=== PATIENT | female | born 1955 | race American Indian/Alaskan Native ===

== ENCOUNTER 2018-12-17 20:41 | Emergency (ER) | payer SELFPAY ==
--- NOTE | 2018-12-17 21:13 | Event Note ---
ED Screening Note ED Screening Note: RX BP PILLS METFORMIN JULIEN ASA PMH HTN NEUROPATHY HTN GERD HERE TO ER WITH HEADACHE DID NOT CHECK BS BECAUSE OUT OF MEDS AND BLOOD SUGAR TESTING NO FALL DIARRHEA LAST WEEK NAUSEA TODAY This initial assessment/diagnostic orders/clinical plan/treatment(s) is/are subject to change based on patients health status, clinical progression and re- assessment by fellow clinical providers in the ED. Further treatment and workup at subsequent clinical providers discretion. Patient/guardian urged not to elope from the ED as their condition may be serious if not clinically assessed and managed. Initial orders include: BS BASIC LABS UA
[2018-12-17 21:31] LABS: Hematocrit 36.9 % (30.3-42.9); Hemoglobin 12.2 gm/dl (10.1-14.3); Mean Corpuscular HGB Conc 33 % (30-34); Mean Corpuscular Volume 83 fl (79-97); Platelet Count 298 K/mm3 (140-440); Red Blood Count 4.45 M/mm3 (3.65-5.03); Red Cell Distribution Width 14.9 % (13.2-15.2)
[2018-12-17 21:52] LABS: BUN/Creatinine Ratio 18; Blood Urea Nitrogen 11 mg/dL (7-17); Calcium 9.1 mg/dL (8.4-10.2); Hemolysis Index 4
--- NOTE | 2018-12-17 22:55 | Emergency Department Report ---
ED General Adult HPI - General Chief complaint: Headache Stated complaint: HEADACHE,BODY ACHES,RIGHT LEG PAIN Time Seen by Provider: 12/17/18 21:11 Source: patient Mode of arrival: Ambulatory Limitations: Physical Limitation - History of Present Illness Initial comments: 63 yo F with hx HTN, DM presents to ED with pain to left leg due to neuropathy. Pt states she ran out of her gabapentin about a week ago. States pain is chronic. No change in the character of her pain. Pt also reports ARREDONDO, pain located on the top of her head, for the last 2 days. States pain improves with tylenol. Reports nausea, no vomiting. Pt reports she also ran out of her metformin and BP meds (does not know the name). -: week(s) Location: head, left, lower extremity Quality: burning Consistency: constant Improves with: none Worsens with: none Associated Symptoms: headaches, nausea/vomiting. denies: chest pain, fever/chills, shortness of breath, weakness - Related Data Previous Rx's Medication Instructions Recorded Last Taken Type Gabapentin [Neurontin] 400 mg PO BID #20 capsule 12/18/18 Unknown Rx metFORMIN [Glucophage] 500 mg PO BID #20 tablet 12/18/18 Unknown Rx Allergies Allergy/AdvReac Type Severity Reaction Status Date / Time No Known Allergies Allergy Verified 12/17/18 20:49 ED Review of Systems ROS: Stated complaint: HEADACHE,BODY ACHES,RIGHT LEG PAIN Other details as noted in HPI Comment: All other systems reviewed and negative Constitutional: denies: chills, fever Respiratory: denies: shortness of breath Cardiovascular: denies: chest pain Gastrointestinal: nausea. denies: abdominal pain, vomiting Neurological: headache. denies: weakness ED Past Medical Hx - Past Medical History Hx Hypertension: Yes Hx Diabetes: Yes Hx GERD: Yes Additional medical history: NEUROPATHY - Social History Smoking Status: Former Smoker Substance Use Type: None - Medications Home Medications: Home Medications Medication Instructions Recorded Confirmed Last Taken Type Gabapentin [Neurontin] 400 mg PO BID #20 capsule 12/18/18 Unknown Rx metFORMIN [Glucophage] 500 mg PO BID #20 tablet 12/18/18 Unknown Rx ED Physical Exam - General Limitations: Physical Limitation General appearance: alert, in no apparent distress - Head Head exam: Present: atraumatic, normocephalic - Eye Eye exam: Present: normal appearance, PERRL, EOMI - ENT ENT exam: Present: mucous membranes moist - Neck Neck exam: Present: normal inspection - Respiratory Respiratory exam: Present: normal lung sounds bilaterally. Absent: respiratory distress - Cardiovascular Cardiovascular Exam: Present: regular rate, normal rhythm - GI/Abdominal GI/Abdominal exam: Present: soft. Absent: distended, tenderness - Extremities Exam Extremities exam: Present: normal inspection. Absent: pedal edema - Neurological Exam Neurological exam: Present: alert, oriented X3, CN II-XII intact. Absent: motor sensory deficit - Psychiatric Psychiatric exam: Present: normal affect, normal mood - Skin Skin exam: Present: warm, dry, intact, normal color ED Course Vital Signs 12/17/18 12/17/18 12/18/18 20:50 21:13 00:15 Temperature 98.4 F 98.4 F Pulse Rate 83 79 80 Respiratory 16 18 14 Rate Blood Pressure 153/86 153/80 151/76 O2 Sat by Pulse 100 100 100 Oximetry 12/18/18 01:26 Temperature 98 F Pulse Rate Respiratory Rate Blood Pressure O2 Sat by Pulse Oximetry ED Medical Decision Making - Lab Data Result diagrams: 12/17/18 21:24 12/17/18 21:24 - Radiology Data Radiology results: report reviewed, image reviewed - Medical Decision Making - pt with chronic leg pain due to diabetic neuropathy, ran out of gabapentin - pt given gabapentin here, symptoms improved - reports headache for the last few days, no new neuro deficits, CT Head no acute abnormalities - will give 10 day supply of gabapentin and metformin, states will receive refills on 12/27/2018 - return precautions given - Differential Diagnosis chronic pain, intracranial abnormality, tension ARREDONDO Critical care attestation.: If time is entered above; I have spent that time in minutes in the direct care of this critically ill patient, excluding procedure time. ED Disposition Clinical Impression: Acute headache, Neuropathy, Chronic pain of left lower extremity Disposition: TO HOME OR SELFCARE Is pt being admited?: No Condition: Stable Instructions: Diabetic Neuropathy (ED), Acute Headache (ED) Prescriptions: metFORMIN [Glucophage] 500 mg PO BID #20 tablet Gabapentin [Neurontin] 400 mg PO BID #20 capsule Referrals: [facility] [Provider Group] - 3-5 Days PRIMARY CARE, [Primary Care Provider] - 3-5 Days BYRON PERES MD [Staff Physician] - 3-5 Days Time of Disposition: 00:48
[2018-12-17] MEDS ORDERED: NEURONTIN PO ONE (22:57)
--- NOTE | 2018-12-18 00:09 | Cat Scan Report ---
CT head/brain wo con INDICATION: Headache x2 days.. TECHNIQUE: All CT scans at this location are performed using the following dose modulation technique: Automated exposure control. CONTRAST: None. COMPARISON: None available. FINDINGS: The ventricular system is appropriate in size and configuration without midline shift. Nega tive for mass, stroke or hemorrhage. Mild low density within the periventricular white matter is typi sherrill of chronic small vessel ischemic change. Imaged portions of the paranasal sinuses are clear. IMPRESSION: 1. Chronic small vessel ischemia. Signer Name: Miguel Angel Morris MD Signed: 12/18/2018 12:05 AM Workstation Name: [id number]
[2018-12-18 01:23] VITALS: BP 151/76
== END 2018-12-18 01:26 | disposition home or self-care (01) ==
LOC: ED 20:41
DX: R51 Headache (principal); G62.9 Polyneuropathy, unspecified; M79.605 Pain in left leg; G89.29 Other chronic pain; I10 Essential (primary) hypertension; E11.9 Type 2 diabetes mellitus without complications; K21.9 Gastro-esophageal reflux disease without esophagitis; Z87.891 Personal history of nicotine dependence; Z79.899 Other long term (current) drug therapy
CPT/HCPCS: 36415; 70450; 80048; 82962; 85027